=== PATIENT | female | born 1955 | race African-American/Black ===

== ENCOUNTER 2021-10-23 05:16 | Inpatient (IN) ==
[2021-10-21 12:05] LABS: Basophils # 0.1 10*3/uL (0.0-0.2); Eosinophils # 0.3 10*3/uL (0.0-0.87); Eosinophils % 5.9 % (0.00-10.9); Hematocrit 36.6 VOL% (35.7-47.0); Hemoglobin 11.8 GM/DL (12.0-16.0); Immature Granulocytes % 0.2 %; Immature Granulocytes Absolute 0.01 #; Lymphocytes # 1.3 10*3/uL (1.4-4.0); Lymphocytes % 26.6 % (21.3-54.2); Mean Corpuscular HGB Conc 32.2 GM/DL (32-36); Mean Corpuscular Volume 83.8 FL (87-102); Mean Platelet Volume 11.9 FL (9.6-12.0); Monocytes # 0.4 10*3/uL (0.11-0.8); Monocytes % 7.5 % (1.7-12.7); Neutrophils % 58.8 % (38.7-73.9); Platelet Count 219 T/CUMM (130-400); Red Blood Count 4.37 MC/CUMM (3.8-5.5); Red Cell Distribution Width 14.2 % (9.3-17.3); White Blood Count 4.9 T/CUMM (4-12)
[2021-10-21 12:29] LABS: Calcium 9.1 MG/DL (8.5-10.1); Potassium 3.9 MMOL/L (3.5-5.1)
[2021-10-23] MEDS ORDERED: ERTAPENEM 1,000 MG VIAL ONE (05:55)
[2021-10-23] MEDS ORDERED: ERTAPENEM 1,000 MG in SODIUM CHLORIDE 0.9% 100 ML IV ONE (06:30)
[2021-10-23] MEDS ORDERED: ALVIMOPAN 12 MG CAPSULE PO ONE (06:30)
[2021-10-23] MEDS ORDERED: ACETAMINOPHEN 500 MG TABLET PO ONE (06:44)
[2021-10-23] MEDS ORDERED: FAMOTIDINE 20 MG TABLET PO ONE (06:44)
[2021-10-23] MEDS ORDERED: DIAZEPAM 5 MG TABLET PO ONE (06:44)
[2021-10-23] MEDS ORDERED: GABAPENTIN 400 MG CAPSULE PO ONE (06:44)
[2021-10-23] MEDS ORDERED: LACTATED RINGERS 1,000 ML IV SCH (07:00)
[2021-10-23] MEDS ORDERED: DEXAMETHASONE 4 MG/1 ML VIAL ONE ×2 (08:08→08:14)
[2021-10-23] MEDS ORDERED: BUPIVACAINE MPF 0.25% 30 ML VIAL ONE (08:08)
[2021-10-23] MEDS ORDERED: LIDOCAINE 1% 5 ML VIAL ONE (08:09)
[2021-10-23] MEDS ORDERED: DEXMEDETOMIDINE 200 MCG/2 ML VIAL ONE (08:13)
[2021-10-23] MEDS ORDERED: KETAMINE 500 MG/10 ML VIAL ONE (08:14)
[2021-10-23] MEDS ORDERED: LIDOCAINE 2% 5 ML VIAL ONE (08:15)
[2021-10-23] MEDS ORDERED: propofoL 200 MG/20 ML VIAL IV ONE (08:15)
[2021-10-23] MEDS ORDERED: MIDAZOLAM 2 MG/2 ML VIAL ONE (08:15)
[2021-10-23] MEDS ORDERED: GLYCOPYRROLATE 0.4 MG/2 ML VIAL ONE ×3 (08:15→11:24)
[2021-10-23] MEDS ORDERED: ONDANSETRON 4 MG/2 ML VIAL ONE (08:15)
[2021-10-23] MEDS ORDERED: ROCURONIUM 50 MG/5 ML VIAL IV ONE (08:15)
[2021-10-23] MEDS ORDERED: fentaNYL 100 MCG/2 ML VIAL ONE (08:17)
[2021-10-23] MEDS ORDERED: BUPIVACAINE MPF 0.5% 30 ML VIAL ONE (08:25)
[2021-10-23] MEDS ORDERED: TISSUE ADHESIVE 1 EACH APPLICATOR TOP ONE ×2 (08:26→11:54)
[2021-10-23] MEDS ORDERED: ePHEDrine 50 MG/ML VIAL ONE ×2 (09:08→11:46)
[2021-10-23] MEDS ORDERED: PHENYLEPHRINE 10 MG/1 ML VIAL IV ONE (09:35)
[2021-10-23] MEDS ORDERED: INDOCYANINE GREEN 25 MG VIAL IV ONE (09:54)
[2021-10-23] MEDS ORDERED: NEOSTIGMINE 10 MG/10 ML VIAL ONE (11:22)
[2021-10-23] MEDS ORDERED: PHENYLEPHRINE 1 MG/10 ML SYRINGE IV ONE ×2 (11:40)
[2021-10-23] MEDS ORDERED: EPINEPHrine 1 MG/ML VIAL ONE (12:00)
[2021-10-23] MEDS ORDERED: SODIUM CHLORIDE 0.9% 200 ML IV ONE (12:01)
[2021-10-23] MEDS ORDERED: SEVOFLURANE 1 UNIT/15 MINUTE INH ONE (12:11)
[2021-10-23] MEDS ORDERED: SUGAMMADEX 200 MG/2 ML VIAL IV ONE (12:15)
[2021-10-23] MEDS ORDERED: ONDANSETRON 4 MG/2 ML VIAL IV PRN ×2 (12:50→14:29)
[2021-10-23] MEDS: HYDROmorphone 1 MG/1 ML SYRINGE IV PRN ×2 (12:55→13:14)
[2021-10-23] MEDS ORDERED: GLUCAGON 1 MG VIAL IM PRN (14:29)
[2021-10-23] MEDS ORDERED: HYDROmorphone 1 MG/1 ML SYRINGE IV PRN (14:29)
[2021-10-23] MEDS ORDERED: DEXTROSE 10% 250 ML BAG IV PRN (14:29)
[2021-10-23] MEDS ORDERED: INFLUENZA VIRUS VACCINE 0.5 ML SYRINGE IM ONE (14:44)
[2021-10-23 14:48] LABS: Basophils % 0.3 % (0.0-0.8); Eosinophils # 0.1 10*3/uL (0.0-0.87); Eosinophils % 0.8 % (0.00-10.9); Hematocrit 34.4 VOL% (35.7-47.0); Hemoglobin 11.2 GM/DL (12.0-16.0); Immature Granulocytes % 0.7 %; Immature Granulocytes Absolute 0.05 #; Lymphocytes # 0.8 10*3/uL (1.4-4.0); Lymphocytes % 10.7 % (21.3-54.2); Mean Corpuscular HGB Conc 32.6 GM/DL (32-36); Mean Corpuscular Volume 83.1 FL (87-102); Mean Platelet Volume 10.3 FL (9.6-12.0); Monocytes # 0.2 10*3/uL (0.11-0.8); Monocytes % 2.5 % (1.7-12.7); Platelet Count 179 T/CUMM (130-400); Red Blood Count 4.14 MC/CUMM (3.8-5.5); Red Cell Distribution Width 14.1 % (9.3-17.3); White Blood Count 7.7 T/CUMM (4-12)
[2021-10-23 15:03] LABS: Calcium 8.1 MG/DL (8.5-10.1); Osmolality,Calculated 282.4 MOS/KG (273-304); Potassium 3.8 MMOL/L (3.5-5.1)
[2021-10-23] MEDS: LACTATED RINGERS 1,000 ML IV SCH (16:17)
[2021-10-23] MEDS: KETOROLAC 15 MG/1 ML VIAL IV SCH ×2 (16:18→21:15)
[2021-10-23] MEDS: INSULIN REGULAR 100 UNIT/ML SUBCUT SCH ×2 (18:19→23:34)
[2021-10-23] MEDS: ALVIMOPAN 12 MG CAPSULE PO SCH (20:59)
[2021-10-23] MEDS: CYCLOBENZAPRINE 10 MG TABLET PO SCH (20:59)
[2021-10-23] MEDS: DORZOLAMIDE 2% BOTH EYES SCH (23:34)
[2021-10-23] MEDS: LATANOPROST 0.005% BOTH EYES SCH (23:35)
[2021-10-24] MEDS: LACTATED RINGERS 1,000 ML IV SCH ×2 (02:45→12:23)
[2021-10-24] MEDS: KETOROLAC 15 MG/1 ML VIAL IV SCH ×3 (05:40→17:18)
[2021-10-24 05:48] LABS: Basophils % 0.1 % (0.0-0.8); Hemoglobin 11.5 GM/DL (12.0-16.0); Immature Granulocytes % 0.3 %; Immature Granulocytes Absolute 0.04 #; Lymphocytes # 0.6 10*3/uL (1.4-4.0); Mean Corpuscular HGB Conc 32.9 GM/DL (32-36); Mean Corpuscular Volume 82.4 FL (87-102); Mean Platelet Volume 11.4 FL (9.6-12.0); Monocytes # 0.6 10*3/uL (0.11-0.8); Monocytes % 4.8 % (1.7-12.7); Neutrophils % 89.8 % (38.7-73.9); Platelet Count 193 T/CUMM (130-400); Red Blood Count 4.25 MC/CUMM (3.8-5.5); Red Cell Distribution Width 13.9 % (9.3-17.3); White Blood Count 12.5 T/CUMM (4-12)
[2021-10-24 06:11] LABS: Calcium 9.1 MG/DL (8.5-10.1); Osmolality,Calculated 281.3 MOS/KG (273-304); Potassium 3.4 MMOL/L (3.5-5.1)
[2021-10-24] MEDS: ENOXAPARIN 40 MG/0.4 ML SYRINGE SUBCUT SCH (07:19)
[2021-10-24] MEDS: DOXAZOSIN 4 MG TABLET PO SCH (09:31)
[2021-10-24] MEDS: ALVIMOPAN 12 MG CAPSULE PO SCH ×2 (09:31→21:14)
[2021-10-24] MEDS: amLODIPine 10 MG TABLET PO SCH (09:31)
[2021-10-24] MEDS: INSULIN REGULAR 100 UNIT/ML SUBCUT SCH ×4 (09:31→21:14)
[2021-10-24] MEDS: ATORVASTATIN 40 MG TABLET PO SCH (09:32)
[2021-10-24] MEDS: DORZOLAMIDE 2% BOTH EYES SCH (09:32)
[2021-10-24] MEDS: POTASSIUM CHLORIDE 20 MEQ TABLET PO PRN (09:39)
[2021-10-24] MEDS: CYCLOBENZAPRINE 10 MG TABLET PO SCH (21:14)
[2021-10-25] MEDS: LACTATED RINGERS 1,000 ML IV SCH ×2 (01:03→12:54)
[2021-10-25] MEDS: LATANOPROST 0.005% BOTH EYES SCH (01:04)
[2021-10-25] MEDS: DORZOLAMIDE 2% BOTH EYES SCH ×2 (01:04→09:02)
[2021-10-25] MEDS: KETOROLAC 15 MG/1 ML VIAL IV SCH ×3 (01:45→12:34)
[2021-10-25] MEDS: ENOXAPARIN 40 MG/0.4 ML SYRINGE SUBCUT SCH (05:30)
[2021-10-25] MEDS: amLODIPine 10 MG TABLET PO SCH (09:02)
[2021-10-25] MEDS: DOXAZOSIN 4 MG TABLET PO SCH (09:02)
[2021-10-25] MEDS: INSULIN REGULAR 100 UNIT/ML SUBCUT SCH ×2 (09:02→11:59)
[2021-10-25] MEDS: ALVIMOPAN 12 MG CAPSULE PO SCH (09:02)
[2021-10-25] MEDS: ATORVASTATIN 40 MG TABLET PO SCH (09:02)
[2021-10-25 10:48] LABS: Calcium 8.7 MG/DL (8.5-10.1); Potassium 3.3 MMOL/L (3.5-5.1)
[2021-10-25 11:57] VITALS: BP 148/84
[2021-10-25] MEDS: POTASSIUM CHLORIDE 20 MEQ TABLET PO PRN (12:35)
== END 2021-10-25 13:27 | disposition home or self-care (01) | DRG 330 ==
LOC: EDSEX → N.OR 05:16 → N.SDSINP 05:19 → N.3E 14:16
PROVIDERS: ADMIT Surgery; ATTEND Surgery